=== PATIENT | male | born 2005 | race African-American/Black ===

== ENCOUNTER 2024-10-12 17:08 | Emergency (ER) | payer MEDICAID, OTHER ==
[~2024-10-12] VITALS: Ht 177.8 cm; Wt 65.0 kg
[2024-10-12 17:12] VITALS: BP 132/60; TEMP 36.7; O2SAT 97
[2024-10-12 17:15] VITALS: PULSE 98; RESP 20; O2SAT 97
[2024-10-12 17:47] LABS: CLARITY URINE CLEAR (CLEAR); COLOR URINE YELLOW (YELLOW); GLUCOSE URINE NEGATIVE (NEGATIVE); KETONES URINE TRACE (NEGATIVE); LEUKOCYTE ESTERASE URINE NEGATIVE (NEGATIVE); NITRITE URINE NEGATIVE (NEGATIVE); OCCULT BLOOD URINE NEGATIVE (NEGATIVE); PH URINE 5.5 (4.5-8.0); PROTEIN URINE 1+ (NEGATIVE); SPECIFIC GRAVITY URINE 1.031 (1.005-1.030); UROBILINOGEN URINE 0.2 E.U./dL (0.2-1.0)
[2024-10-12 18:04] LABS: BACTERIA URINE TRACE; RBC URINE 0-2 /hpf (0-2); SQUAMOUS EPITHELIAL CELL URINE RARE /lpf (RARE/1+); WBC URINE 0-2 /hpf (0-2)
[2024-10-12] MEDS ORDERED: OMEP40CA20 MT (18:12)
[2024-10-12] MEDS ORDERED: ACET-2708 MT (18:12)
== END 2024-10-12 18:44 | disposition home or self-care (01) ==
LOC: ER 17:08
DX: N50.819 Testicular pain, unspecified (principal); Z79.899 Other long term (current) drug therapy
CPT/HCPCS: 74021; 81003; 99284